=== PATIENT | male | born 1995 | race African-American/Black ===

== ENCOUNTER 2020-08-10 19:31 | Emergency (ER) | payer OTHER ==
[~2020-08-10] VITALS: Ht 185.4 cm; Wt 90.7 kg
[2020-08-10 19:36] VITALS: BP 116/66
== END 2020-08-10 21:41 | disposition left against medical advice (07) ==
LOC: EDBD 19:31 → ER 19:35
DX: R11.2 Nausea with vomiting, unspecified (principal); Z53.21 Procedure and treatment not carried out due to patient leaving prior to being seen by health care provider